=== PATIENT | male | born 1980 | race Caucasian/White ===

== ENCOUNTER → 2018-11-16 00:55 | Emergency (ER) | payer SELFPAY ==
[~2018-11-16 00:55] MED LIST: ALPRAZolam TAB* 0.5 MG PO ONE
--- NOTE | 2018-11-16 03:11 | ED ---
Palpitations / Dysrhythmia - HPI Summary HPI Summary: Pt is a 38 y/o M presenting to the ED with a chief complaint of heart palpitations onset about 2300 on 11/15/18. The pt, who is speaking through his co -worker who is interpreting, reports that he drank two cups of coffee as well as a redbull. Around 2300, he felt his heart beating at a rapid rate, he was shaking, and felt fatigued. The pt denies chest pains or any significant medical history. 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 Onset/Duration: Sudden Onset, Lasting Hours, Still Present Timing: Constant Severity Initially: Moderate Severity Currently: Moderate Character: Fast, Pounding Aggravating: Caffeine Alleviating: Nothing - Allergy/Home Medications Allergies/Adverse Reactions: Allergies Allergy/AdvReac Type Severity Reaction Status Date / Time acetaminophen [From Tylenol] Allergy Hives Verified 11/16/18 01:07 Home Medications: Home Medications NK [No Home Medications Reported] 11/16/18 [History Confirmed 11/16/18] PMH/Surg Hx/FS Hx/Imm Hx Previously Healthy: Yes Endocrine/Hematology History: Denies: Hx Diabetes Cardiovascular History: Denies: Hx Hypertension Infectious Disease History: No Infectious Disease History: Denies: Traveled Outside the [place] in Last 30 Days - Family History Known Family History: Negative: Renal Disease - Social History Occupation: Employed Full-time Alcohol Use: Daily Alcohol Amount: 5-6 beers today Hx Substance Use: No Substance Use Type: Reports: None Hx Tobacco Use: Yes Smoking Status (MU): Former Smoker Review of Systems Positive: Fatigue Positive: Palpitations. Negative: Chest Pain Positive: Other - shaking All Other Systems Reviewed And Are Negative: Yes Physical Exam - Summary Physical Exam Summary: VITAL SIGNS: Reviewed. GENERAL: Patient is a well-developed and nourished male who is lying comfortable in the stretcher. Patient is not in any acute respiratory distress. Patient is somewhat anxious. HEAD AND FACE: No signs of trauma. No ecchymosis, hematomas or skull depressions. No sinus tenderness. EYES: PERRLA, EOMI x 2, No injected conjunctiva, no nystagmus. EARS: Hearing grossly intact. Ear canals and tympanic membranes are within normal limits. MOUTH: Oropharynx within normal limits. NECK: Supple, trachea is midline, no adenopathy, no JVD, no carotid bruit, no c- spine tenderness, neck with full ROM. CHEST: Symmetric, no tenderness at palpation LUNGS: Clear to auscultation bilaterally. No wheezing or crackles. CVS: Tachycardic, S1 and S2 present, no murmurs or gallops appreciated. ABDOMEN: Soft, non-tender. No signs of distention. No rebound no guarding, and no masses palpated. Bowel sounds are normal. EXTREMITIES: FROM in all major joints, no edema, no cyanosis or clubbing. NEURO: Alert and oriented x 3. No acute neurological deficits. Speech is normal and follows commands. SKIN: Dry and warm Triage Information Reviewed: Yes Vital Signs On Initial Exam: Initial Vitals Temp Pulse Resp BP Pulse Ox 97.2 F 108 20 160/113 97 11/16/18 01:01 11/16/18 01:01 11/16/18 01:01 11/16/18 01:01 11/16/18 01:01 Vital Signs Reviewed: Yes Diagnostics - Vital Signs Vital Signs Temp Pulse Resp BP Pulse Ox 11/16/18 02:51 106 19 161/96 97 11/16/18 01:01 97.2 F 108 20 160/113 97 - Laboratory Result Diagrams: 11/16/18 03:19 11/16/18 03:19 Lab Statement: Any lab studies that have been ordered have been reviewed, and results considered in the medical decision making process. - EKG 0110 Cardiac Rate: Other Rate - afib 98bpm EKG Rhythm: Atrial Fibrillation ST Segment: Normal Ectopy: None Course/Dx - Course Course Of Treatment: Pt is a 38 y/o M presenting to the ED with a chief complaint of heart palpitations onset about 2300 on 11/15/18. The pt had two cups of coffee and a RedBull in order to stay awake while driving, and felt his heart rate increase, body shakes, and fatigue onset around 2300. He denies chest pains. An EKG at 0110 shows atrial fibrillation at 98bpm. The pt will be discharged with a dx of anxiety. He is agreeable with this plan. - Diagnoses Provider Diagnoses: Anxiety Discharge - Sign-Out/Discharge Documenting (check all that apply): Patient Departure Patient Received Moderate/Deep Sedation with Procedure: No - Discharge Plan Condition: Stable Disposition: HOME Referrals: [facility] [Outside] Additional Instructions: Please follow up with your primary care provider within the next 2-3 days. Return to the emergency department with any new or worsening symptoms. - Attestation Statements Document Initiated by Scribe: Yes Documenting Scribe: Swati Miller Provider For Whom Nicanoribe is Documenting (Include Credential): Santos Eric MD. Scribe Attestation: Swati Gonzales scribed for Santos Eric MD. on 11/16/18 at 0520. Status of Scribe Document: Ready
[2018-11-16 03:27] LABS: ABS Basophils 0.1 10^3/ul (0-0.2); ABS Eosinophils 0.1 10^3/ul (0-0.6); ABS Lymphocytes 1.4 10^3/ul (1.0-4.8); ABS Monocytes 0.8 10^3/ul (0-0.8); ABS Neutrophils 10.8 10^3/ul (1.5-7.7); ABS Nucleated RBC 0 10^3/ul; Eosinophil % 0.6 %; Hematocrit 44 % (36-46); Lymphocyte % 10.4 %; Mean Corpuscular HGB Conc 34 g/dL (31-36); Mean Corpuscular Hemoglobin 31 pg (27-31); Mean Corpuscular Volume 91 fL (80-94); Mean Platelet Volume 8.4 fL (7.4-10.4); Nucleated Red Blood Cells % 0; Platelet Count 211 10^3/uL (150-450); Red Blood Count 4.81 10^6 /uL (4.18-5.48); Red Cell Distribution Width 13 % (10.5-15); White Blood Count 13.1 10^3/uL (3.5-10.8)
[2018-11-16 03:46] LABS: Albumin 4.4 g/dL (3.2-5.2); Albumin/Globulin Ratio 1.7 (1-3); BUN/Creatinine Ratio 12.2 (8-20); Calcium 8.9 mg/dL (8.6-10.3); EGFR African American 103.6 (>60); EGFR Non-African American 85.6 (>60); Globulin 2.6 g/dL (2-4); Magnesium 1.5 mg/dL (1.9-2.7); Potassium 3.7 mmol/L (3.5-5.0); Total Bilirubin 0.3 mg/dL (0.2-1.0)
[2018-11-16 03:48] LABS: Troponin I 0.01 ng/mL (<0.04)
[2018-11-16 04:06] LABS: TSH (Thyroid Stimulating Horm) 3.04 mcIU/mL (0.34-5.60)
[2018-11-16 06:00] VITALS: BP 128/95
== END | disposition home or self-care (01) ==
LOC: ED 00:55
DX: F41.9 Anxiety disorder, unspecified (principal); I48.91 Unspecified atrial fibrillation; R00.2 Palpitations; R53.83 Other fatigue; Z88.6 Allergy status to analgesic agent; Z87.891 Personal history of nicotine dependence
CPT/HCPCS: 36415; 80053; 83735; 84443; 84484; 85025; 85379; 93005; 99283; A9270-GY